=== PATIENT | male | born 1990 | race Caucasian/White ===

== ENCOUNTER 2021-10-03 08:11 | Outpatient (CLI) | payer BC, SELFPAY ==
[2021-10-03 10:30] LABS: Vitamin D,25 Hydroxy 62.2 ng/mL
[2021-10-03 10:32] LABS: ALB/GLOB Ratio 1.2 RATIO (0.9-2.4); AST(SGOT) 23 U/L (15-37); Alanine Aminotransfer ALT/SGPT 33 U/L (16-61); Albumin, Serum 4.1 g/dL (3.2-5.0); Alkaline Phosphatase 43 U/L (45-117); Anion Gap 5 (5-15); BUN 18 mg/dL (7-18); BUN/Creat Ratio 13.3 RATIO (10-20); Calcium,Total 8.7 mg/dL (8.5-10.1); Chloride 105 mmol/L (98-107); Creatinine, Serum 1.35 mg/dL (0.70-1.30); EST Glomerular Filtration Rate 66 mL/min (>60); Est Glom Filt Rate - Afr Amer 79 mL/min (>60); Globulin 3.3 g/dL (2.2-4.2); Glucose 98 mg/dL (74-106); Magnesium 2.2 mg/dL (1.6-2.6); Potassium 4.2 mmol/L (3.5-5.1); Protein, Total 7.4 g/dL (6.4-8.2); Sodium Level 139 mmol/L (136-145); Thyroid Stim Hormone (TSH) 1.49 uIU/mL (0.358-3.74)
== END 2021-10-03 23:59 | disposition short-term general hospital (02) ==
LOC: MFPLAB 08:16
PROVIDERS: PCP Family Medicine; Referring Provider Family Medicine; Visit Provider Family Medicine
DX: F41.9 Anxiety disorder, unspecified (principal); E55.9 Vitamin D deficiency, unspecified; E83.42 Hypomagnesemia
CPT/HCPCS: 36415; 80053; 82306; 83735; 84443

== ENCOUNTER → 2022-09-09 | Outpatient (CLI) | payer BC, SELFPAY ==
[2022-09-09 19:00] LABS: ALB/GLOB Ratio 1.3 RATIO (0.9-2.4); AST(SGOT) 33 U/L (15-37); Alanine Aminotransfer ALT/SGPT 37 U/L (16-61); Albumin, Serum 4.1 g/dL (3.2-5.0); Alkaline Phosphatase 49 U/L (45-117); Anion Gap 8 (5-15); BUN 22 mg/dL (7-18); BUN/Creat Ratio 14.9 RATIO (10-20); Calcium,Total 9.3 mg/dL (8.5-10.1); Chloride 105 mmol/L (98-107); Creatinine, Serum 1.48 mg/dL (0.70-1.30); EST Glomerular Filtration Rate 59 mL/min (>60); Est Glom Filt Rate - Afr Amer 71 mL/min (>60); Globulin 3.1 g/dL (2.2-4.2); Glucose 97 mg/dL (74-106); Magnesium 2.1 mg/dL (1.6-2.6); Potassium 3.8 mmol/L (3.5-5.1); Protein, Total 7.2 g/dL (6.4-8.2); Sodium Level 140 mmol/L (136-145)
== END | disposition home or self-care (01) ==
LOC: MFPLAB 16:22
PROVIDERS: PCP Family Medicine; Referring Provider Family Medicine; Visit Provider Family Medicine
DX: E55.9 Vitamin D deficiency, unspecified (principal)
CPT/HCPCS: 36415; 80053; 82306; 83735

== ENCOUNTER → 2022-10-19 | Outpatient (CLI) | payer BC, SELFPAY ==
--- NOTE | 2022-10-19 12:02 | RAD_ITS ---
STUDY: X-RAY - RIGHT SHOULDER REASON FOR EXAM: Male, 32 years old. PAIN TECHNIQUE: 4 view(s) of the shoulder. COMPARISON: None. FINDINGS: Normal glenohumeral articulation. Normal acromioclavicular joint. Normal acromion. Normal humeral head and visualized proximal humerus. The soft tissue structures are unremarkable. Normal visualized pulmonary apex. RAD/Shoulder min 2 Views IMPRESSION: Normal x-ray examination of the shoulder. Electronically Signed: Chris Hopson MD at 22:28 EST ,
== END | disposition home or self-care (01) ==
PROVIDERS: PCP Family Medicine; Referring Provider Family Medicine; Visit Provider Family Medicine
DX: M25.511 Pain in right shoulder (principal)
CPT/HCPCS: 73030

== ENCOUNTER 2022-11-19 15:00 | Outpatient (RCR) | payer BC, SELFPAY ==
--- NOTE | 2022-10-23 16:51 | HP.PTEVAL ---
Patient's Visit Information ROEL PINEDA is a 32 year old M referred to Physical Therapy by Dr. Lalitha Sousa MD with a diagnosis of ROTATOR CUFF INJURY ,RIGHT. Date of Evaluation: 10/23/22 Physical Therapist: Mateo Boyd, PT, Cert MDT, OCS - Visit Plan Frequency: 2x /Week Duration: 4 Weeks Plan: PT INTERVTIONS RTC/SCAPULAR ,POSTURAL EX'S , AND MODALTIES - Subjective This 32 y/o male presents to physical therapy with rotator cuff injury . Patient injury occurred Oct 17 Snow Boarding fell on right shoulderwith immediate pain. Patient went to [facility] family did x-rays -. Recommended PT . Pain located top shoulder UT. Patient has difficulty with OH activities ,unable to lift and affects self hygiene such as putting on cloths . Alleviating factors rest. Denies paresthesia/tingling. Patient symptoms affects sleeping. Patient is unable to RTW at [employer]. Patient goal to RTW and function of ADLS's. SOCIAL: single , one child. VOCATION: [employer] - Pain Right Shoulder Pain Intensity (Out of 10): 2 Pain Intensity Range: 10 - Objective POSTURE: mild forward posture shoulders. PALAPTION: tender long head bicipital groove, top of distal clavicle tender. SKIN: ecchymosis. NEURO: denies paresthesia/tingling. AROM: shoulder flexion 150 degrees painful arc, abduction 150 pain arc 90 ,ER 90 degrees , IR T12. MMT: 4/5 RTC ,anterior deltoid (peak force ) 0 pain ,lateral 13.4 - Special Tests L Shoulder External Rotation Lag Test - RC Tear: Negative L Shoulder Lift Off Test - Subscapular Tear: Negative L Shoulder Drop Sign - IS Test: Negative L Shoulder Neer - Impingement: Positive L Shoulder Parkinson Fly - Impingement: Positive L Shoulder Apprehension Test - Anterior Instability: Negative L Shoulder O'Briens - SLAP/A-C: Positive - Balance/Special Test Scores Quick DASH Score: 40.9075 - Goals Goal 1:: Patient to be I with HEP Goal Time Frame: 4-6 Weeks Goal 2:: Patient to demonstrate 50% with improved function with less pain. . Goal Time Frame: 4-6 Weeks Goal 3:: Patient to improve AROM shoulder WFL Right > Left to improve function Goal Time Frame: 4-6 Weeks Goal 4:: Patient improve peak force deltoid lateral anterior 5-10points to improve function Goal Time Frame: 4-6 Weeks Goal 5:: Patient to improve quick dash by 5 points to improve function and ADLS Goal Time Frame: 4-6 Weeks - Rehabilitation Potential Physical Therapy Diagnosis: Patient fell onto shoulder right shoulder snow board with possible long head bicep decreasing pain with OH activities pain with Rehabilitation Potential: Good - Anticipated Interventions Patient/Client Instruction: Educate patient on: Condition, Plan of Care For the Purpose of:: To decrease pain, To increase ROM, To improve muscle performance and motor function, To increase tolerance to activity/condition/position, To improve ability of physical actions for home/community/work/leisure, To improve health of tissue, To decrease soft tissue restriction, To increase flexibility/ROM, To prevent re-injury Therapeutic Exercise to Include: Strength training, Postural training, Flexibilty training, Active ROM, Scapular Strength/Stabilization For the Purpose of:: To decrease pain, To increase ROM, To improve muscle performance and motor function, To increase tolerance to activity/condition/position, To improve ability of physical actions for home/community/work/leisure, To improve health of tissue, To decrease soft tissue restriction, To increase flexibility/ROM, To prevent re-injury TENS: Yes IF ES: Yes Cryotherapy (ice pack, ice massage): Yes Thermo therapy (hot pack): Yes Ultrasound (thermal/non thermal): Yes For the Purpose of:: To decrease pain, To increase ROM, To improve muscle performance and motor function, To increase tolerance to activity/condition/position, To improve ability of physical actions for home/community/work/leisure, To improve health of tissue, To decrease soft tissue restriction, To increase flexibility/ROM, To prevent re-injury, To improve tolerance to ADL's Thank you for the opportunity to evaluate your patient. For Medicare and Medicare HMO plans, please review the plan of care and approve it. It will need to be FAXED BACK to us at [phone] for Medicare purposes. For Medicare only, by signing this I certify the plan of care. Please let me know if there are questions or concerns regarding this plan of care. Physician Signature: Date:
--- NOTE | 2022-11-19 15:36 | HP.PTDCSUM ---
It has been my pleasure to treat ROEL PINEDA referred by Dr. Lalitha Sousa MD, with the diagnosis of ROTATOR CUFF INJURY ,RIGHT for a total of 8 visit(s). Discharge Date: Please see the following information for a summary of their discharge status. Subjective: Doing well . Okay for D/C and RTW full duty Right Shoulder Pain Intensity (Out of 10): 0 % Improvement: 95 Objective/Function: AROM: SHOULDER FELXION /ABD 160 DEGREES ER 90 DEGREES T11 IR. MMT: RTC 5/5 DELTOID 5/5. - SPEEDS TEST. I TO GTM PROGRAM Goal 1:: Patient to be I with HEP Goal Progress: Goal Met Goal 2:: Patient to demonstrate 50% with improved function with less pain. . Goal Progress: Goal Met Goal 3:: Patient to improve AROM shoulder WFL Right > Left to improve function Goal Progress: Goal Met Goal 4:: Patient improve peak force deltoid lateral anterior 5-10points to improve function Goal Progress: Goal Met Goal 5:: Patient to improve quick dash by 5 points to improve function and ADLS Plan: D/C TO HEP AND RTW If there are questions or concerns regarding this patient's physical therapy, please feel free to call me at [phone]. Thank you for the referral of this patient. Sincerely, Mateo Boyd PT, Cert MDT, OCS Balance/Gait/Functional tests - Balance/Special Test Scores Quick DASH Score: 0
== END 2022-11-19 19:00 | disposition home or self-care (01) ==
LOC: PT 15:00
PROVIDERS: PCP Family Medicine; Referring Provider Family Medicine; Visit Provider Family Medicine
DX: S46.011D Strain of muscle(s) and tendon(s) of the rotator cuff of right shoulder, subsequent encounter (principal)
CPT/HCPCS: 97110; 97162

== ENCOUNTER 2022-12-10 14:16 | Outpatient (CLI) | payer BC, SELFPAY ==
[2022-12-10 18:37] LABS: Absolute Lymphocyte Count 2.16 X10^3/uL (0.83-4.51); Absolute Neutrophil Count 1.9 X10^3/uL (2.0-7.7); Basophil# 0.03 X10^3/uL; Basophil% 0.7 % (0-1); Eosinophil# 0.04 X10^3/uL; Eosinophils% 0.9 % (0-5); Hematocrit 41.5 % (40-54); Hemoglobin 13.8 g/dL (13.0-16.5); Lymphocyte # 2.16 X10^3/ul (0.83-4.51); Lymphocyte % 48.1 % (19-41); Mean Corp Hgb Conc 33.3 g/dL (32-36); Mean Corpuscular Hgb 29.6 pg (27.0-32.0); Mean Corpuscular Volume 88.9 fL (80-94); Mean Platelet Vol. 8.9 fl (6.2-12.0); Monocyte# 0.36 X10^3/uL; NRBC Flagged by Analyzer 0 % (0-5); Neutrophil # 1.89 X10^3/uL (2.7-7.7); Neutrophil % 42.1 % (47-70); Platelet Count 373 K/mm3 (150-450); RBC Distribution Width CV 12.7 % (11.6-14.6); RBC Distribution Width SD 41.2 fl (35.1-43.9); Red Blood Count 4.67 M/mm3 (4.6-6.2); White Blood Count 4.5 K/mm3 (4.4-11.0)
[2022-12-10 18:40] LABS: Anion Gap 9 (5-15); BUN 24 mg/dL (7-18); BUN/Creat Ratio 21.1 RATIO (10-20); Calcium,Total 8.7 mg/dL (8.5-10.1); Chloride 106 mmol/L (98-107); Creatinine, Serum 1.14 mg/dL (0.70-1.30); EST Glomerular Filtration Rate 79 mL/min (>60); Est Glom Filt Rate - Afr Amer 96 mL/min (>60); Glucose 82 mg/dL (74-106); Potassium 4.2 mmol/L (3.5-5.1); Sodium Level 141 mmol/L (136-145)
== END 2022-12-10 23:59 | disposition home or self-care (01) ==
PROVIDERS: PCP Family Medicine; Referring Provider Family Medicine; Visit Provider Nurse Practitioner Family
DX: R10.9 Unspecified abdominal pain (principal); N28.9 Disorder of kidney and ureter, unspecified
CPT/HCPCS: 36415; 80048; 85025

== ENCOUNTER → 2023-03-10 | Outpatient (CLI) | payer BC, SELFPAY ==
[2023-03-10 18:27] LABS: ALB/GLOB Ratio 1.1 RATIO (0.9-2.4); AST(SGOT) 25 U/L (15-37); Alanine Aminotransfer ALT/SGPT 29 U/L (16-61); Albumin, Serum 3.9 g/dL (3.2-5.0); Alkaline Phosphatase 60 U/L (45-117); Anion Gap 11 (5-15); BUN 21 mg/dL (7-18); BUN/Creat Ratio 16.3 RATIO (10-20); Chloride 107 mmol/L (98-107); Creatinine, Serum 1.29 mg/dL (0.70-1.30); EST Glomerular Filtration Rate 68 mL/min (>60); Est Glom Filt Rate - Afr Amer 83 mL/min (>60); Globulin 3.4 g/dL (2.2-4.2); Glucose 129 mg/dL (74-106); Potassium 3.6 mmol/L (3.5-5.1); Protein, Total 7.3 g/dL (6.4-8.2); Sodium Level 140 mmol/L (136-145)
== END | disposition home or self-care (01) ==
LOC: MFPLAB 15:37
PROVIDERS: PCP Family Medicine; Visit Provider Family Medicine
DX: N28.9 Disorder of kidney and ureter, unspecified (principal)
CPT/HCPCS: 36415; 80053

== ENCOUNTER → 2025-07-04 | Outpatient (CLI) | payer BC, SELFPAY ==
[2025-07-04 13:23] LABS: HIV Nonreactive (Nonreactive); Hepatitis B Surface Antigen Nonreactive (Nonreactive); Hepatitis C Antibody Nonreactive (Nonreactive); Syphilis Antibodies Nonreactive (Nonreactive)
== END | disposition home or self-care (01) ==
LOC: MFPLAB 10:08
PROVIDERS: PCP Family Medicine; Visit Provider Family Medicine
DX: Z11.3 Encounter for screening for infections with a predominantly sexual mode of transmission (principal)
CPT/HCPCS: 36415; 86703; 86706; 86780; 86803; 87340; 87491; 87591